=== PATIENT | female | born 1940 ===

== ENCOUNTER 2018-03-27 13:34 | Outpatient (CLI) | payer OTHER ==
[2018-03-27] MEDS ORDERED: PREVACID30 MG PO (15:52)
[2018-03-27] MEDS ORDERED: IRBESARTAN-HCT1 EACH PO (15:52)
[2018-03-27] MEDS ORDERED: VITAMIN D22000 UNIT PO (15:53)
[2018-03-27] MEDS ORDERED: SIMVASTATIN10 MG PO (15:53)
== END 2018-03-27 18:00 | disposition home or self-care (01) ==
LOC: EKG 13:34
DX: I10 Essential (primary) hypertension (principal)

== ENCOUNTER 2018-06-26 05:38 | Day surgery (SDC) | payer OTHER ==
[~2018-06-26 05:38] MED LIST: INTESTINEX680 M1 PO; IRBESARTAN-HCT1 EACH PO; PREVACID30 MG PO; SIMVASTATIN10 MG PO; VITAMIN D22000 UNIT PO
[2018-06-26] MEDS ORDERED: PERCOCET 5-3251 EACH PO (09:22)
[2018-06-26] MEDS ORDERED: RECTICARE30 GM TOP (09:23)
== END 2018-06-26 11:15 | disposition home health service, planned readmission (86) ==
LOC: CIR.AMB 05:38
DX: N81.6 Rectocele (principal); K64.8 Other hemorrhoids; K64.4 Residual hemorrhoidal skin tags